=== PATIENT | female | born 1985 | race Caucasian/White ===

== ENCOUNTER 2018-05-10 21:04 | Inpatient (IN) | payer BC, OTHER, SELFPAY ==
[~2018-05-10 21:04] MED LIST: Dexamethasone 20 MG/5 ML VIAL ONE; Ketorolac Tromethamine 30 MG/ML VIAL ONE; PROPOFOL 200 MG/20 ML VIAL ONE; Succinylcholine Chloride 20 MG/ML 10 ml SYRINGE FS ONE
--- NOTE | 2018-05-10 21:43 | PDOC.LDHP ---
Labor and Delivery H&P Chief complaint: loss of fluid HPI: 33 y/o G1 at 39w2d, patient of Dr. Nance, presents with SROM about an hour ago. Denies regular ctx, vb or decreased FM. Was breech in office and scheduled for version next week. Last SVE 1cm. ROS neg for HEENT, cv, pulm, gi, gu, neuro, psych, skin, musculoskeletal or constitutional symptoms other than mentioned above. OB History Details: First Current complications: breech Past Medical History: None Current medications: pre-jah vitamins Previous surgical history: other (Lap band) Allergies/Adverse Reactions: Allergies Allergy/AdvReac Type Severity Reaction Status Date / Time No Known Allergies Allergy Verified 10/11/13 09:55 Social history: none - Physical Exam Vital signs reviewed and normal: yes General: NAD Lungs: nonlabored breathing Abdomen: gravid (NTTP) Extremeties: no edema FHT: category 1 (140s, mod variability, + accels, no decels) [place] contractions every: 5 mins - Vaginal Exam cm dilated: 5 (Footling breech with leg through cervix to thigh. No cord palpated.) Effacement: 100% Station: -3 - Assessment L&D Assessment: term rupture in membranes - Plan Plan: admit to L&D, to OR for section, informed consent obtained, anesthesia consult for pain management -: Dr. Nance notified.
[2018-05-10] MEDS ORDERED: PROPOFOL 20 ML ONE (21:44)
[2018-05-10] MEDS ORDERED: Succinylcholine Chloride 20 MG/ML 10 ml SYRINGE FS ONE (21:44)
[2018-05-10] MEDS ORDERED: Fentanyl 100 MCG/2 ML VIAL ONE ×2 (21:44→22:28)
[2018-05-10] MEDS ORDERED: Oxytocin 10 UNITS/ML VIAL ONE (21:45)
[2018-05-10] MEDS ORDERED: Dexamethasone 4 mg/ml Vial ONE (21:45)
[2018-05-10] MEDS ORDERED: Bicitra 30 ML UDCUP PO SCH (21:45)
[2018-05-10] MEDS ORDERED: CEFAZOLIN/Water 2 GM/20 ML SYRINGE SLOW IVP SCH (21:45)
[2018-05-10] MEDS ORDERED: PHENYLEPHRINE-NS 100 MCG/ML 10 ML SYRINGE ONE (21:45)
[2018-05-10] MEDS ORDERED: Ketorolac Tromethamine 30 MG/ML VIAL ONE (21:45)
[2018-05-10 21:48] VITALS: BMI 47.1
[2018-05-10 21:53] LABS: Hemoglobin 11.2 g/dL (12.0-16.0); Mean Corpuscular HGB CONC 34.5 g/dL (32.0-36.0); Mean Corpuscular Hemoglobin 32.6 pg (27.0-31.0); Mean Corpuscular Volume 94.7 fL (78.0-98.0); Mean Platelet Volume 7.6 fL (7.4-10.4); Platelet Count 257 thou/uL (130-400); RBC Distribution Width 12.1 % (11.5-14.5); Red Blood Cell (RBC) Count 3.42 mill/uL (4.20-5.40); White Blood Cell (WBC) Count 10.1 thou/uL (4.8-10.8)
[2018-05-10] MEDS ORDERED: Morphine CADD 1 MG/ML CADD IVPB PRN (22:24)
[2018-05-10] MEDS ORDERED: diphenhydrAMINE 50 MG/ML VIAL IVP PRN (22:24)
[2018-05-10] MEDS ORDERED: Ketorolac Tromethamine 30 MG/ML VIAL IVP PRN (22:24)
[2018-05-10] MEDS ORDERED: Ondansetron HCl/PF 4 MG/2 ML Vial IVP PRN ×2 (22:24)
[2018-05-10] MEDS ORDERED: HYDROmorphone 2 MG/ML VIAL SLOW IVP PRN (22:24)
[2018-05-10] MEDS ORDERED: Zolpidem Tartrate 5 MG TAB PO PRN (22:24)
[2018-05-10] MEDS ORDERED: Naloxone HCl 0.4 mg/ml Vial IV PRN (22:24)
[2018-05-10] MEDS ORDERED: Promethazine HCl 25 MG/ML VIAL IM PRN (22:24)
[2018-05-10] MEDS ORDERED: diphenhydrAMINE 50 MG/ML VIAL IM PRN (22:24)
[2018-05-10] MEDS ORDERED: Meperidine HCl/PF 25 MG/ML VIAL SLOW IVP PRN (22:24)
[2018-05-10] MEDS ORDERED: diphenhydrAMINE 25 MG CAP PO PRN (22:24)
[2018-05-10] MEDS ORDERED: Promethazine HCl 25 MG/ML VIAL ONE (22:28)
[2018-05-10] MEDS ORDERED: Ketorolac Tromethamine 30 MG/ML VIAL IVP SCH (22:30)
[2018-05-10] MEDS ORDERED: Communication Order-Pharmacy FS SCH (22:30)
[2018-05-10 22:33] LABS: HBSAg Index 0.17 S/CO (0-0.99); Hep B Surf Ag Non-Reactive S/CO (NonReactive); Syphilis Antibody Nonreactive (Nonreactive); Syphilis Antibody Index 0.03 S/CO (<1.00 Non-Reactive)
[2018-05-10 22:35] LABS: Actual Bicarbonate (HCO3v) 20 mEq/L (22-28); Base Excess -5.5 mEq/L (-2.0 to +3.0)
--- NOTE | 2018-05-10 22:51 | PDOC.OPDEL ---
OB Operative/Delivery Note Delivery Dr/Surgeon: Lee Ann Assist: Corin Pre-Delivery Diagnosis: active labor, breech Procedure/Post Delivery Dx: primary low transverse CS Weeks gestation: 39 Anesthesia: other (GETA) - Findings A Sex: male Weight: 8 lb 6 oz - 1 min: 9 - 5 min: 9 - Additional Findings/Plan Placenta delivered: manual removal findings: low transverse hysterotomy without extension Estimated blood loss: 800ml Compilations/Other Findings: none Post delivery plan: routine recovery
[2018-05-10] MEDS ORDERED: Lanolin Ointment 7 GM TUBE TOP PRN (22:52)
[2018-05-10] MEDS ORDERED: Acetaminophen/Codeine 30-300mg Tablet PO PRN ×2 (22:52)
[2018-05-10] MEDS ORDERED: Bisacodyl 10 MG SUPP PR PRN (22:52)
[2018-05-10] MEDS ORDERED: NS / Oxytocin 40 units/1000ml 1,000 ML IV SCH (23:00)
[2018-05-10] MEDS ORDERED: Lactated Ringer's 1,000 ML IV SCH (23:00)
[2018-05-11] MEDS: Misoprostol 200 MCG TAB PR SCH ×2 (01:58→23:34)
[2018-05-11] MEDS ORDERED: Ibuprofen 800 MG TAB PO SCH (06:00)
[2018-05-11 06:09] LABS: Hemoglobin 8.9 g/dL (12.0-16.0); Mean Corpuscular HGB CONC 34.2 g/dL (32.0-36.0); Mean Corpuscular Hemoglobin 32.5 pg (27.0-31.0); Mean Corpuscular Volume 95.2 fL (78.0-98.0); Mean Platelet Volume 8.1 fL (7.4-10.4); Platelet Count 212 thou/uL (130-400); RBC Distribution Width 12.2 % (11.5-14.5); Red Blood Cell (RBC) Count 2.74 mill/uL (4.20-5.40); White Blood Cell (WBC) Count 15.6 thou/uL (4.8-10.8)
--- NOTE | 2018-05-11 07:19 | OP ---
DATE OF SURGERY: 05/10/2018 PREOPERATIVE DIAGNOSES: 1. A 33-year-old white female, G1, P0 at 39 weeks 2 days gestation. 2. Spontaneous rupture of membranes, labor with footling breech presentation. POSTOPERATIVE DIAGNOSES: 1. A 33-year-old white female, G1, P0 at 39 weeks 2 days gestation. 2. Spontaneous rupture of membranes, labor with footling breech presentation. PROCEDURE PERFORMED: Urgent primary low transverse section. ANESTHESIA: General endotracheal. ESTIMATED BLOOD LOSS: 800 mL. COMPLICATIONS: None. COUNTS: Correct x2. SURGEON: Yomaira Nance M.D. EMG TECHNICIAN SURGEON: Christin Coombs M.D. FINDINGS: 1. Vigorous male infant noted to be footling breech presentation with prolapse of 1 foot into the va ginal vault. Apgars of the infant 9 and 9, weight 8 pounds 6 ounces. 2. Normal appearing fallopian tubes, uterus, and ovaries. 3. Clear urine present in Alejandro catheter post procedure. DISPOSITION: To recovery room stable. DESCRIPTION OF OPERATIVE PROCEDURE: The patient previously received informed consent in regards to rosy melvin. She was taken back to the operating room where she received a general endotracheal anestheti c agent due to the urgent nature of the section. She was prepped during this process, drape d in usual sterile fashion with general endotracheal anesthetic agent confirmed, Pfannenstiel incisio n was made. It was carried down to the fascia. Fascia was nicked in the midline. Fascial incision was extended bilaterally with curved Gonzalez scissors. The rectus fascia was dissected superiorly and i nferiorly off the rectus muscle bellies. The rectus muscle bellies were divided in the midline. The peritoneal cavity was entered. Amador O retractor was then placed to aid in exposure. A 2-cm hyste rotomy incision was made above the fold of the vesicouterine peritoneum and the hysterotomy incision was extended via finger fractionation. The infant was delivered by grabbing one of the feet and brin ging this through the hysterotomy and is unable to grabbing the leg that had prolapsed into the vagin a, pulling that up through the hysterotomy incision and then with a corkscrewing technique grabbing t he buttocks twisting the torso, the infant allowed for easy delivery of the arms and the head of the atraumatically. The cord was doubly clamped and cut and the baby was handed to the neonatolog ist, Dr. Jarrell who was in attendance. Usual cord blood and cord gas was obtained. Placenta was manually extracted. The uterus was curetted of any remaining placental fragments with dry laparotom y sponge. Hysterotomy incision was then closed with #1 Monocryl securing hemostasis. This was close d in running locking fashion. Hysterotomy incision was inspected. Hemostasis was confirmed. The Al exis O retractor was removed. The pelvis again was irrigated and suctioned. Hemostasis was confirme d. The rectus muscle bellies were then inspected and noted to be hemostatic. The fascia was then cl osed with 0 PDS suture x2 in running continuous fashion. Subcutaneous tissue was irrigated and noted be hemostatic and was approximated with a running 3-0 plain gut suture. Lohman were placed to clos e the skin incision and the surgery was terminated. No anesthetic or surgical complications.
--- NOTE | 2018-05-11 07:41 | PDOC.PP ---
Post Progress Note Post Day #: 1 Subjective: Doing well, no complaints. Pain well controlled. PO intake tolerated: yes (CLD) Flatus: no Ambulation: no Vital Signs (12 hours) Temp Pulse Resp BP Pulse Ox 05/11/18 03:41 98.6 F 75 16 103/53 L 05/11/18 02:20 97.5 F L 82 16 124/60 05/11/18 01:20 98.9 F 81 16 140/70 05/10/18 23:50 98.4 F 92 18 100 05/10/18 22:24 98.4 F 05/10/18 21:39 98.4 F 05/10/18 21:20 98.4 F 104 H Weight Weight 292 lb - Physical Examination General: NAD Respiratory: non-labored breathing Abdominal: lochia (normal), no distention, appropriately TTP Fundus firm & at: U-3 Skin: no rash (Dressing clean, dry, intact) Neurological: no gross focal deficits Psychiatric: A&Ox3, normal affect Result Diagrams: 05/11/18 05:42 Additional Labs: Post Labs Blood Type O POSITIVE 05/10/18 21:48 Hep Bs Antigen Non-Reactive S/CO (NonReactive) 05/10/18 21:48 (1) Delivery by section for footling breech presentation Code(s): O32.8XX0 - MATERNAL CARE FOR OTH MALPRESENTATION OF FETUS, UNSP Status: Acute - Assessment/Plan Continue routine postop day 1 management. Encouraged ambulation. Possible d/c home tomorrow vs Sunday.
[2018-05-11] MEDS ORDERED: Adacel (T-DAP) 0.5 ML VIAL IM ONE (09:00)
[2018-05-11] MEDS: Simethicone Chewable 80 MG TAB PO PRN ×2 (10:00→21:26)
[2018-05-11] MEDS ORDERED: HYDROcodone/Acetaminophen 5/325 mg Tablet PO PRN (11:16)
[2018-05-11] MEDS ORDERED: Ibuprofen 800 MG TAB PO PRN (11:17)
[2018-05-11] MEDS: Docusate Calcium (SURFAK) 240 MG CAP PO SCH ×2 (14:09→21:26)
[2018-05-11] MEDS: Prenatal Vitamin 1 TAB PO SCH (14:09)
[2018-05-11] MEDS: HYDROcodone/Acetaminophen 5/325 mg Tablet PO PRN ×2 (14:56→21:25)
--- NOTE | 2018-05-11 16:20 | ADD-OP ---
ADDENDUM DATE OF SERVICE: 05/10/2018 I was present and scrubbed to assist the uncomplicated primary for footling breech with SHELIA M with Dr. Nance. Please see her note for full details of the procedure.
[2018-05-12] MEDS: HYDROcodone/Acetaminophen 5/325 mg Tablet PO PRN ×3 (03:17→15:23)
--- NOTE | 2018-05-12 06:32 | PDOC.PP ---
Post Progress Note Post Day #: 2 Subjective: Doing well. Case reviewed with her (footling breech) PO intake tolerated: yes Flatus: yes Ambulation: yes Vital Signs (12 hours) Temp Pulse Resp BP BP 05/12/18 03:50 98.0 F 102 H 16 135/64 05/12/18 00:00 99.0 F 98 16 108/59 L 05/11/18 20:00 98.1 F 111 H 18 118/59 L Weight Weight 292 lb - Physical Examination Cardiovascular: no m/r/g Respiratory: clear to auscultation bilaterally Abdominal: + bowel sounds, lochia, no distention, appropriately TTP Extremities: negative homans (B) Skin: CS incision dry & intact (go in use) Neurological: no gross focal deficits Psychiatric: A&Ox3, normal affect Result Diagrams: 05/11/18 05:42 Additional Labs: Post Labs Blood Type O POSITIVE 05/10/18 21:48 Hep Bs Antigen Non-Reactive S/CO (NonReactive) 05/10/18 21:48 (1) Delivery by section for footling breech presentation Code(s): O32.8XX0 - MATERNAL CARE FOR OTH MALPRESENTATION OF FETUS, UNSP Status: Acute - Assessment/Plan POD 2 for footling breech. CS was at night, so will be POD 2 tonight. No evidence ileus. Doing well, was ambulating in room. Incision checked by me. Probable discharge home in AM tomorrow
[2018-05-12] MEDS: Prenatal Vitamin 1 TAB PO SCH (09:20)
[2018-05-12] MEDS: Simethicone Chewable 80 MG TAB PO PRN (09:20)
[2018-05-12] MEDS: Docusate Calcium (SURFAK) 240 MG CAP PO SCH ×2 (09:21→22:35)
[2018-05-12] MEDS: Ibuprofen 800 MG TAB PO PRN ×2 (14:17→22:35)
[2018-05-13] MEDS: Ibuprofen 800 MG TAB PO PRN ×2 (06:41→13:45)
[2018-05-13 07:41] VITALS: BP 117/56; TEMP 98.5
--- NOTE | 2018-05-13 07:44 | PDOC.PP ---
Post Progress Note Post Day #: 3 Flatus: yes Ambulation: yes Vital Signs (12 hours) Temp Pulse Resp BP 05/13/18 02:00 99.0 F 100 18 05/13/18 01:50 99.0 F 100 05/13/18 00:00 99.0 F 100 18 05/12/18 20:00 99.1 F 112 H 18 122/66 Weight Weight 292 lb - Physical Examination General: NAD Cardiovascular: no m/r/g, RRR Respiratory: clear to auscultation bilaterally, non-labored breathing Abdominal: + bowel sounds, lochia, no distention, appropriately TTP Result Diagrams: 05/11/18 05:42 Additional Labs: Post Labs Blood Type O POSITIVE 05/10/18 21:48 Hep Bs Antigen Non-Reactive S/CO (NonReactive) 05/10/18 21:48 - Assessment/Plan post op day 3...doing well. d/c home on tramadol and otc motrin. go out post op day 7.6 week post .
[2018-05-13] MEDS: Docusate Calcium (SURFAK) 240 MG CAP PO SCH (08:04)
[2018-05-13] MEDS: Prenatal Vitamin 1 TAB PO SCH (08:04)
[2018-05-13] MEDS: HYDROcodone/Acetaminophen 5/325 mg Tablet PO PRN ×2 (08:05→13:45)
[2018-05-13] MEDS ORDERED: Measles/Mumps/Rubella 10 MCG/0.5 ML VIAL SC SCH (15:15)
== END 2018-05-13 15:30 | disposition home or self-care (01) | DRG 766 ==
LOC: L&D/OP 21:04 → L&D 22:05 → 3SW 05-11 01:23
PROVIDERS: ADMIT Obstetrics & Gynecology; ATTEND Obstetrics & Gynecology
PROC: 10D00Z1 Extraction of Products of Conception, Low, Open Approach (ICD-10-PCS; principal; 2018-05-13)
DX: O32.8XX0 Maternal care for other malpresentation of fetus, not applicable or unspecified (principal); Z3A.39 39 weeks gestation of pregnancy; Z37.0 Single live birth
CPT/HCPCS: 36415; 51702; 82805; 85027; 86780; 86850; 86900; 86901; 87340; 99285; J1100; J1885; J2274; J2550; J2590; J2704; J3010